=== PATIENT | female | born 1985 | race Caucasian/White ===

== ENCOUNTER 2017-06-26 06:00 | Inpatient (IN) | payer OTHER ==
[2017-06-26] MEDS ORDERED: OLIVE OIL 118 ML BTL MISC PRN (06:39)
[2017-06-26] MEDS ORDERED: EPSOM SALT 454 GM TP PRN (06:39)
[2017-06-26] MEDS ORDERED: TERBUTALINE SULFATE 1 MG/ML VIAL IV PRN (06:39)
[2017-06-26] MEDS ORDERED: LR 1,000 ML IV PRN (06:39)
[2017-06-26] MEDS ORDERED: OXYTOCIN 20 UNIT in LR 1,000 ML IV PRN (06:39)
[2017-06-26] MEDS ORDERED: IBUPROFEN 600 MG TAB PO PRN (06:39)
[2017-06-26] MEDS ORDERED: LIDOCAINE 1% 300 MG/30 ML SDV ONE (07:06)
[2017-06-26] MEDS ORDERED: OLIVE OIL 118 ML BTL ONE (07:06)
[2017-06-26] MEDS ORDERED: MISOPROSTOL 200 MCG TAB ONE (07:07)
[2017-06-26] MEDS ORDERED: AMMONIA AROMATIC 1 EACH AMP IH ONE (07:07)
[2017-06-26] MEDS ORDERED: TERBUTALINE SULFATE 1 MG/ML VIAL ONE (07:07)
[2017-06-26] MEDS ORDERED: OXYTOCIN 10 UNIT/ML VIAL ONE (07:07)
[2017-06-26 07:09] LABS: PLATELET COUNT 247 10^3/uL (150-400)
--- NOTE | 2017-06-26 07:14 | OBPROG ---
Labor Progress Note Assessment/Plan: Assessment:cat 1 fhr no regular painful contractions rahman bulb dc'd with exam today on admission /-2 cephalic soft posterior pitocin per protocol Plan:admit pitocin per protocol 06/26/17 07:12 Subjective/Intrapartum Course: 06/26/17 07:11 TAlked about iol at length discussed, r/b/a/ verbalized understanding. Discussed arom as a part of poc usually at noon time Objective: 06/26/17 06:45 - Physical Exam General Appearance: WD/WN, alert, no apparent distress Respiratory: chest non-tender, lungs clear, normal breath sounds Cardiac/Chest: regular rate, rhythm Abdomen: normal bowel sounds Extremities: normal range of motion, Dinh's sign (negative bilaterally) DTR- Lower Extremities: Knee (R): 1+, Knee (L): 1+ (no clonus) Skin: normal color, warm/dry Neuro/Psych: no motor/sensory deficits, alert, normal mood/affect, oriented x 3 ICD10 Worksheet Patient Problems: Problems Problem Status Onset iol postdates Acute
[2017-06-26] MEDS ORDERED: OXYTOCIN 30 UNIT in NS 500 ML IV SCH (07:15)
[2017-06-26] MEDS: AMPICILLIN SODIUM 1 GM in NS 50 ML IV SCH ×6 (07:30→19:15)
--- NOTE | 2017-06-26 08:39 | GHP ---
[f rep st] HISTORY AND PHYSICAL DATE OF ADMISSION: 06/26/2017 HISTORY OF PRESENT ILLNESS: The patient is a 32-year-old 1, para 0, with an EDC of 8, who comes in on 06/26/2017 for induction of labor at a gestational age of 40 and 5/7 weeks. In th e office yesterday at 5 p.m., a Palomares bulb was placed. The patient at that time, was 1 cm. Today, w ith admit to Labor and Delivery, an exam was completed. Palomares bulb was discontinued. The patient wa s 4 cm, 75% effaced, -2, cephalic, soft, and posterior. States has been feeling positive movem ent throughout the night. Denies regular contractions. Denies bloody show. The patient has been re ceiving routine care through [facility] since early on in the . The patient is A negative and has an anemic history antepartum. MEDICAL HISTORY: Benign. SURGICAL HISTORY: Patient had surgery for a cyst on her right wrist and had no difficulties with ane sthesia. GYNECOLOGICAL HISTORY: Previous OCP use and IUD use. Began her menses at 14 years of age which was regular. SOCIAL HISTORY: Denies alcohol. Denies tobacco use. Exercise 2-3 times per week. FAMILY HISTORY: Some knee surgery in her family as well as her significant other's. Breast cancer o f an aunt. Dad had high blood pressures. Maternal grandfather: Lung cancer. REVIEW OF SYSTEMS: Times 9 was benign. PHYSICAL ASSESSMENT: GENERAL: Patient is awake, alert, oriented x3. LUNGS: Clear bilaterally. AB DOMEN: Bowel sounds are positive in all 4 quadrants. EXTREMITIES: DTRs are 1+ bilaterally with no clonus. Homans sign is negative bilaterally. At this time, is unavailable. RPR is nonreactive. Gonorrhea and chlamydia are negative. H IV is negative. Hepatitis B is negative. Rubella is immune. Group beta strep was positive. The pa tient will be receiving antibiotics, will start them on admission. PLAN OF CARE: 1. GBS positive. Antibiotics in labor. 2. Pitocin per protocol. 3. Possible amniotomy after several hours of Pitocin. 4. Consult Dr. Elsie Gambino on plan of care. Dr. Gambino made aware of patient being in Labor and De livery. 5. The patient states that she is negative blood type, so will possibly receive RhoGAM depending on baby's cord blood. /[id number]/MODL
--- NOTE | 2017-06-26 14:34 | OBPROG ---
Labor Progress Note Assessment/Plan: Assessment: 32 y/o @ 40 5/7 wks for postdate IOL Plan: Continue current management Pitocin at 10 mu/min AROM -blood tinged fluid noted FHTs - Cat I tracing Will reassess for cervical change in a few hours 06/26/17 14:32 Subjective/Intrapartum Course: 06/26/17 07:11 Talked about Iol at length discussed, r/b/a/ verbalized understanding. Discussed arom as a part of poc usually at noon time 06/26/17 14:32 Pt doing well, not really feeling pain with her ctx's. Objective: 06/26/17 06:45 Patient ABO/Rh A NEGATIVE 06/26/17 06:45 - SVE Dilation (cm): 4 Effacement (%): 75 Station: -2 Membranes: AROM Amniotic Fluid Color: Bloody - Contraction Pattern Assessment Current Contraction Pattern: Regular (q4-5 min) - FHR Assessment Chamorro FHR (bpm): 140 FHR Pattern Variability: Moderate FHR Category: 1 - Procedures Non-surgical Procedures: Amniotomy - AP Antepartum Course: 06/26/17 14:34 Postdate IOL. +GBS. Rh negative. Oxytocin Orders Assessment - Pre-Induction/Augmentation Assessment Gestational Age: 40 week(s) and 5 day(s) ICD10 Worksheet Patient Problems: Problems Problem Status Onset iol postdates Acute
[2017-06-26] MEDS ORDERED: fentaNYL 2MCG/ML/BUP 0.1% RTU 100 ML BAG EP ONE (17:09)
[2017-06-26] MEDS ORDERED: BUPIVACAINE 0.25% 30 ML SDV ONE (17:09)
[2017-06-26] MEDS ORDERED: PHENYLEPHRINE HCL 100 MCG/ML SYR ONE (17:09)
[2017-06-26] MEDS ORDERED: fentaNYL 100 MCG/2 ML INJ ONE (17:10)
--- NOTE | 2017-06-26 18:32 | OBPROG ---
Labor Progress Note Assessment/Plan: Assessment: 32 y/o @ 40 5/7 wks for postdate IOL Plan: s/p epidural continue current management Pitocin at 10 mu/min FHTs - Cat I tracing Will have pt labor down 06/26/17 18:28 Subjective/Intrapartum Course: 06/26/17 07:11 Talked about Iol at length discussed, r/b/a/ verbalized understanding. Discussed arom as a part of poc usually at noon time 06/26/17 14:32 Pt doing well, not really feeling pain with her ctx's. 06/26/17 18:29 Pt is s/p epidural, states pain 7/10 mostly pressure Objective: 06/26/17 06:45 Patient ABO/Rh A NEGATIVE 06/26/17 06:45 - SVE Dilation (cm): 9 Effacement (%): 100 Station: +1 Membranes: AROM Amniotic Fluid Color: Bloody - Contraction Pattern Assessment Current Contraction Pattern: Regular (q3-5 min) - FHR Assessment Chamorro FHR (bpm): 140 FHR Pattern Variability: Moderate FHR Category: 1 (+early decels) - Procedures Non-surgical Procedures: Amniotomy - AP Antepartum Course: 06/26/17 14:34 Postdate IOL. +GBS. Rh negative. Oxytocin Orders Assessment - Pre-Induction/Augmentation Assessment Gestational Age: 40 week(s) and 5 day(s) ICD10 Worksheet Patient Problems: Problems Problem Status Onset iol postdates Acute
[2017-06-26] MEDS ORDERED: ONDANSETRON 4 MG/2 ML VIAL IVP PRN (19:33)
[2017-06-26] MEDS ORDERED: PHENYLEPHRINE HCL 100 MCG/ML SYR IVP PRN (19:33)
--- NOTE | 2017-06-26 19:39 | PREANESOB ---
Obstetric Pre-Anesthesia Info - General Info Proposed Procedure: Labor and delivery with pitocin. : 1 Para: 0 SHINE: 06/21/17 Gestational Age: 40 week(s) and 5 day(s) - Info Status: Postmature Monitors: External FHR Baseline (bpm): 135 FHR Pattern: Reassuring - Labor Status Cervical Dilation per last OB SVE: 4 Station per last OB SVE: +1 Amniotic Fluid Color: Bloody Pitocin: In Use Indications for Labor Analgesia: Induction of Labor, Pain Control Labor Epidural: Proposed Anesthesia ROS: Negative. Allergies/Adverse Reactions: Allergy/AdvReac Type Severity Reaction Status Date / Time No Known Allergies Allergy Unverified 06/26/17 06:29 Home Medications: Medication Instructions Recorded Docusate Sodium [Colace] 1 cap PO DAILY 06/26/17 IRON 1 tab PO DAILY 06/26/17 Pepcid 10 mg PO BID 06/26/17 1 tab PO DAILY 06/26/17 Visit Medications: Generic Name Dose Route Start Last Admin Trade Name Jasperq PRN Reason Stop Dose Admin Diphenhydramine HCl 25 - 50 mg 06/26/17 19:33 Benadryl Injection IVP 12/23/17 19:32 Q6HRS PRN Itching Ampicillin Sodium 1 gm/ Sodium 50 mls @ 100 mls/hr 06/26/17 10:45 06/26/17 15 :39 Chloride IV 07/26/17 10:44 50 mls Q4H MARY Administration Protocol Lactated Ringer's 1,000 mls @ 0 mls/hr 06/26/17 06:39 06/26/17 07:30 Lr IV 06/27/17 06:38 1,000 mls PRN PRN Administration SEE PROTOCOL CONDITIONS Protocol Per Protocol Oxytocin 20 unit/ Lactated 1,002 mls @ 150 mls/hr 06/26/17 06:39 Ringer's IV PRN PRN Post- bleeding Oxytocin 30 unit/ Sodium 503 mls @ 0 mls/hr 06/26/17 07:15 06/26/17 07:32 Chloride IV 12/23/17 07:14 503 mls CONT MARY Administration Protocol Per Protocol Fentanyl/Bupivacaine HCl 100 mls @ 0 mls/hr 06/26/17 20:00 Fentanyl/Bupivacaine/Ns 2 Mcg/Ml 0.1% (Premix EP 07/06/17 19:59 CONT MARY Protocol As Directed Lactated Ringer's 500 mls @ 0 mls/hr 06/26/17 20:00 Lr IV 12/23/17 19:59 CONT MARY As Directed Ibuprofen 600 mg 06/26/17 06:39 Motrin PO 12/23/17 06:38 Q6HRS PRN post , inflammation Magnesium Sulfate 454 gm 06/26/17 06:39 Epsom Salt TP 12/23/17 06:38 Q1H PRN perineal discomfort Industry Oil 118 ml 06/26/17 06:39 Sweet Oil MISC 12/23/17 06:38 ONCE PRN perineal massage Ondansetron HCl 4 mg 06/26/17 19:33 Zofran IVP 06/27/17 19:32 Q4HRS PRN Nausea/Vomiting, Can't Take PO Phenylephrine HCl 100 mcg 06/26/17 19:33 Neosynephrine IVP 12/23/17 19:32 .Q2M PRN Hypotension Terbutaline Sulfate 0.25 mg 06/26/17 06:39 Brethine IV 12/23/17 06:38 ONCE PRN Tachysystole Discontinued Medications Generic Name Dose Route Start Last Admin Trade Name Freq PRN Reason Stop Dose Admin Ammonia (Aromatic Spirit) Confirm 06/26/17 07:07 Ammonia Aromatic Administered 06/26/17 07:08 Dose 1 each IH .STK-MED ONE Bupivacaine HCl Confirm 06/26/17 17:09 Sensorcaine 0.25% Sdv Administered 06/26/17 17:10 Dose 30 ml .ROUTE .STK-MED ONE Fentanyl Confirm 06/26/17 17:10 Sublimaze Administered 06/26/17 17:11 Dose 100 mcg .ROUTE .STK-MED ONE Fentanyl/Bupivacaine HCl Confirm 06/26/17 17:09 Fentanyl/Bupivacaine/Ns 2 Mcg/Ml 0.1% (Premix Administered 06/26/17 17:10 Dose 100 ml EP .STK-MED ONE Ampicillin Sodium 1 gm/ Sodium 50 mls @ 100 mls/hr 06/26/17 06:45 06/26/17 07 :31 Chloride IV 06/26/17 07:44 50 mls Q30M MARY Administration Protocol Lidocaine HCl Confirm 06/26/17 07:06 Lidocaine Hcl 1% Administered 06/26/17 07:07 Dose 300 mg .ROUTE .STK-MED ONE Misoprostol Confirm 06/26/17 07:07 Cytotec Administered 06/26/17 07:08 Dose 1,000 mcg .ROUTE .STK-MED ONE Industry Oil Confirm 06/26/17 07:06 Sweet Oil Administered 06/26/17 07:07 Dose 118 ml .ROUTE .STK-MED ONE Oxytocin Confirm 06/26/17 07:07 Pitocin Administered 06/26/17 07:08 Dose 40 unit .ROUTE .STK-MED ONE Phenylephrine HCl Confirm 06/26/17 17:09 Neosynephrine Administered 06/26/17 17:10 Dose 1,000 mcg .ROUTE .STK-MED ONE Terbutaline Sulfate Confirm 06/26/17 07:07 Brethine Administered 06/26/17 07:08 Dose 1 mg .ROUTE .STK-MED ONE - Anesthesia History Response to Local Anesthetics: Normal Anesthesia & Operative History: No Prior Problems Family Anesthesia History: Negative - Social History Substance Use/Abuse: Denies - Vital Signs Blood Pressure: 113/74 Heart Rate: 96 Height/Weight (Nursing): Height 172.72 cm Weight 77.111 kg - Focused Exam Neck exam: FROM Mallampati Score: Class 1 Mouth exam: normal dental/mouth exam Pulmonary: no respiratory distress Cardiovascular: regular rate and rhythym Labs: 06/26/17 06:45 Patient ABO/Rh A NEGATIVE 06/26/17 06:45 - Plan Anesthetic Plan: NELIDA Consent Signed and on Chart: Yes Patient/Guardian Understands and Agrees to Plan: Yes Urgent/Emergent Case: Gem do completed preop but documented later for safe timely pt care
--- NOTE | 2017-06-26 19:40 | POSTANESTH ---
Post Anesthetic Evaluation Cardiovascular Status: Normal, Stable, Similar to Pre-Op Cond Respiratory Status: Normal, Stable, Similar to Pre-op Cond. Level of Consciousness/Mental Status: Can Participate in Eval, Alert and Oriented Pain Control: Adequate, Prn Tx Ordered Nausea/Vomiting Control: Adequate, Prn Tx Ordered Complications Possibly Related to Anesthesia: None Noted
[2017-06-26] MEDS ORDERED: LR 500 ML IV SCH (20:00)
[2017-06-26] MEDS ORDERED: fentaNYL 2MCG/ML/BUP 0.1% RTU 100 ML EP SCH (20:00)
--- NOTE | 2017-06-26 20:10 | OBPROG ---
Labor Progress Note Assessment/Plan: Assessment: 32 y/o @ 40 5/7 wks for postdate IOL Plan: Will start pushing Anticipate FHTs - Cat I tracing 06/26/17 20:07 Subjective/Intrapartum Course: 06/26/17 07:11 Talked about Iol at length discussed, r/b/a/ verbalized understanding. Discussed arom as a part of poc usually at noon time 06/26/17 14:32 Pt doing well, not really feeling pain with her ctx's. 06/26/17 18:29 Pt is s/p epidural, states pain 7/10 mostly pressure 06/26/17 20:09 Pt is feeling more pressure Objective: 06/26/17 06:45 Patient ABO/Rh A NEGATIVE 06/26/17 06:45 Temp Pulse Resp BP Pulse Ox 96 113/74 06/26/17 19:39 06/26/17 19:39 - SVE Dilation (cm): 10 Effacement (%): 100 Station: +2 Membranes: AROM Amniotic Fluid Color: Bloody - Contraction Pattern Assessment Current Contraction Pattern: Regular (q3-4 min) - Procedures Non-surgical Procedures: Amniotomy - AP Antepartum Course: 06/26/17 14:34 Postdate IOL. +GBS. Rh negative. Oxytocin Orders Assessment - Pre-Induction/Augmentation Assessment Gestational Age: 40 week(s) and 5 day(s) ICD10 Worksheet Patient Problems: Problems Problem Status Onset iol postdates Acute
[2017-06-26] MEDS ORDERED: METHYLERGONOVINE MAL 0.2 MG/ML INJ ONE (21:38)
[2017-06-26] MEDS ORDERED: METHYLERGONOVINE MAL 0.2 MG/ML INJ IM ONE (21:41)
[2017-06-26] MEDS ORDERED: SILVER NITRATE APPLICATOR 1 APPL TP ONE ×10 (21:51→21:56)
[2017-06-26] MEDS ORDERED: HYDROCORTISONE 0.5% CREAM TP PRN (22:06)
[2017-06-26] MEDS ORDERED: HYDROCODONE/APAP 5/325 TAB PO PRN (22:06)
[2017-06-26] MEDS ORDERED: SIMETHICONE 80 MG TAB CHEW PO PRN (22:06)
--- NOTE | 2017-06-26 22:12 | OBDEL ---
Info Type: Vaginal Presentation at Delivery: Vertex L&D Analgesia/Anesthesia Type: Epidural GBS+: Yes Antibiotic Used for + GBS: Ampicillin (x 4 doses) Intrapartum Medications: Generic Name Dose Route Start Last Admin Trade Name Freq PRN Reason Stop Dose Admin Ampicillin Sodium 1 gm/ Sodium 50 mls @ 100 mls/hr 06/26/17 10:45 06/26/17 19 :15 Chloride IV 07/26/17 10:44 50 mls Q4H MARY Administration Protocol Lactated Ringer's 1,000 mls @ 0 mls/hr 06/26/17 06:39 06/26/17 07:30 Lr IV 06/27/17 06:38 1,000 mls PRN PRN Administration SEE PROTOCOL CONDITIONS Protocol Per Protocol Oxytocin 30 unit/ Sodium 503 mls @ 0 mls/hr 06/26/17 07:15 06/26/17 07:32 Chloride IV 12/23/17 07:14 503 mls CONT MARY Administration Protocol Per Protocol Discontinued Medications Generic Name Dose Route Start Last Admin Trade Name Freq PRN Reason Stop Dose Admin Ampicillin Sodium 1 gm/ Sodium 50 mls @ 100 mls/hr 06/26/17 06:45 06/26/17 07 :31 Chloride IV 06/26/17 07:44 50 mls Q30M MARY Administration Protocol - Hospital Course Intrapartum: 06/26/17 07:11 Talked about Iol at length discussed, r/b/a/ verbalized understanding. Discussed arom as a part of poc usually at noon time 06/26/17 14:32 Pt doing well, not really feeling pain with her ctx's. 06/26/17 18:29 Pt is s/p epidural, states pain 7/10 mostly pressure 06/26/17 20:09 Pt is feeling more pressure Indications for Delivery: Postterm Unfavorable Cervix (s/p rahman bulb) Vaginal Delivery - Delivery Provider Delivery Physician/CNM: Elsie Gambino - Labor and Delivery Onset of Contractions Date: 06/26/17 Onset of Contractions Time: 08:44 Onset of Contractions Type: Induced Rupture of Membranes Date: 06/26/17 Rupture of Membranes Time: 14:00 Rupture of Membranes Type: Artificial Amniotic Fluid Color: Bloody Dilation Complete Date: 06/26/17 Dilation Complete Time: 19:00 Placenta Delivery Date: 06/26/17 Placenta Delivery Time: 21:33 Total Hours of Labor: 12 Non-surgical Procedures: Amniotomy Laceration: 2nd Degree, Other (Specify) (periurethral) Repair: 3-0, Vicryl Vaginal Sponge Count Correct: Yes Vaginal Needle Count Correct: Yes Vaginal Sweep Performed: Yes EBL: 400 cc Delivery Events: Nuchal Cord (x1, loose-slipped on perineum) Delivery Comment: There was noted to be excessive VB after delivery of placenta and uterine atony. The uterus became firm with massage, Pitocin and Methergine x 1. - Medications Labor Augmentation/Induction Methods Used: Pitocin, Rahman Bulb Labor Augmentation/Induction Indication: Post Dates Data SHINE: 06/21/17 Gestational Age: 40 week(s) and 5 day(s) [place] Delivery Date: 06/26/17 Delivery Time: 21:29 Sex of : Female ("[place]") Score (1 Min): 8 Score (10 Min): 10 ICD10 Worksheet Patient Problems: Problems Problem Status Onset (spontaneous vaginal delivery) Acute iol postdates Acute - ICD10 Problem Qualifiers (1) (spontaneous vaginal delivery)
[2017-06-26] MEDS: IBUPROFEN 600 MG TAB PO PRN ×2 (22:41→23:09)
[2017-06-27] MEDS: AMPICILLIN SODIUM 1 GM in NS 50 ML IV SCH (01:25)
[2017-06-27 03:10] VITALS: RESP 18
[2017-06-27] MEDS: IBUPROFEN 600 MG TAB PO PRN ×3 (04:55→19:07)
[2017-06-27] MEDS: IRON POLYSAC/IRON HEME 28 MG TAB PO SCH ×2 (11:49→21:39)
[2017-06-27] MEDS: DOCUSATE SODIUM 100 MG CAP PO PRN ×2 (11:49→21:40)
--- NOTE | 2017-06-27 16:51 | OBPP ---
Progress Note Assessment/Plan: Assessment: 32 y/o PPD #1 s/p doing well. Plan: support and routine PPC. Anticipate d/c home tomorrow. 06/27/17 16:50 Subjective/ Course: 06/27/17 16:48 Pt is doing well today, she feels generalized body soreness and perineal pain. She feels is it controlled well with Ibuprofen. Min lochia, ambulating and voiding without difficulty. Breast feeding is challenging, using breast rucker and a pump. Objective: 06/26/17 06:45 Patient ABO/Rh A NEGATIVE 06/26/17 23:07 Temp Pulse Resp BP Pulse Ox 36.2 C 106 H 18 92/59 L 94 06/27/17 07:40 06/27/17 07:40 06/27/17 07:40 06/27/17 07:40 06/27/17 07:40 Uterine Position/Fundal Height: Umbilicus -3 Uterine Tone: Firm Physical Exam - Physical Exam Neck: non-tender, full range of motion, supple Respiratory: chest non-tender, lungs clear, normal breath sounds Cardiac/Chest: regular rate, rhythm Abdomen: normal bowel sounds Extremities: swelling (no), Dinh's sign (neg)
[2017-06-27 22:36] VITALS: O2SAT 97
[2017-06-28] MEDS: IBUPROFEN 600 MG TAB PO PRN ×2 (02:04→08:27)
--- NOTE | 2017-06-28 07:37 | OBPP ---
Progress Note Assessment/Plan: Assessment: 1) s/p PPD # 2 - pt is stable 2) Anemia - pt is asymptomatic 3) Rh negative - s/p Rhogam Plan: Plan for d/c today Instructions reviewed with pt No Rx given Cont PNV, iron, colace Pelvic rest RTC in 4 and 6 weeks for pp visit 06/28/17 07:34 Subjective/ Course: 06/27/17 16:48 Pt is doing well today, she feels generalized body soreness and perineal pain. She feels is it controlled well with Ibuprofen. Min lochia, ambulating and voiding without difficulty. Breast feeding is challenging, using breast rucker and a pump. 06/28/17 07:35 Pt seen and examined. Doing well with no complaints. Mild cramping. Mod lochia. Pt is OOB, gloria regular diet, voiding and passing flatus. No BM. BF and pumping. Objective: 06/26/17 06:45 Patient ABO/Rh A NEGATIVE 06/26/17 23:07 Temp Pulse Resp BP Pulse Ox 36.0 C 96 18 95/61 L 97 06/27/17 21:00 06/27/17 21:00 06/27/17 21:00 06/27/17 21:00 06/27/17 21:00 Uterine Position/Fundal Height: Umbilicus -2 Uterine Tone: Firm Physical Exam - Physical Exam Abdomen: non-tender, soft, flatus (+) Extremities: non-tender, normal inspection Skin: normal color, warm/dry Neuro/Psych: alert, normal mood/affect, oriented x 3
--- NOTE | 2017-06-28 07:38 | OBGCSDC ---
General Delivery Information - General Info : 1 Para: 1 Abortions: 0 Type: Vaginal L&D Analgesia/Anesthesia Type: Epidural Admission Date: 06/26/17 Labs: Patient ABO/Rh A NEGATIVE 06/26/17 23:07 Hct 35.3 % (38.0-47.0) L 06/26/17 06:45 - Hospital Course Antepartum: 06/26/17 14:34 Postdate IOL. +GBS. Rh negative. Intrapartum: 06/26/17 07:11 Talked about Iol at length discussed, r/b/a/ verbalized understanding. Discussed arom as a part of poc usually at noon time 06/26/17 14:32 Pt doing well, not really feeling pain with her ctx's. 06/26/17 18:29 Pt is s/p epidural, states pain 7/10 mostly pressure 06/26/17 20:09 Pt is feeling more pressure : 06/27/17 16:48 Pt is doing well today, she feels generalized body soreness and perineal pain. She feels is it controlled well with Ibuprofen. Min lochia, ambulating and voiding without difficulty. Breast feeding is challenging, using breast rucker and a pump. 06/28/17 07:35 Pt seen and examined. Doing well with no complaints. Mild cramping. Mod lochia. Pt is OOB, gloria regular diet, voiding and passing flatus. No BM. BF and pumping. Vaginal - Delivery Provider Delivery Physician/CNM: Elsie Gambino - Diagnosis Labor: Induced Rupture of Membranes Type: Artificial Amniotic Fluid Color: Bloody Laceration: 2nd Degree, Other (Specify) (periurethral) Repair: 3-0, Vicryl Delivery Events: Nuchal Cord (x1, loose-slipped on perineum) - Procedures Non-surgical Procedures: Amniotomy - Delivery Non-surgical Procedures: Amniotomy EBL: 400 cc Mcbh [place] Data SHINE: 06/21/17 Gestational Age: 41 week(s) and 0 day(s) [place] Delivery Date: 06/26/17 Delivery Time: 21:29 Sex of Infant: Female Score (1 Min): 8 Score (5 Min): 10 Score (10 Min): 10 Discharge Information - Discharge Information Condition: Good Instruction/Follow Up: Four Weeks, Six Weeks
[2017-06-28] MEDS: IRON POLYSAC/IRON HEME 28 MG TAB PO SCH (08:26)
[2017-06-28] MEDS: DOCUSATE SODIUM 100 MG CAP PO PRN (08:27)
[2017-06-28 09:19] VITALS: BP 105/70; PULSE 110; TEMP 98.5
== END 2017-06-28 12:30 | disposition home or self-care (01) | DRG 774 ==
LOC: FLD 06:14 → FOB 06-27 07:25
PROVIDERS: ADMIT Obstetrics & Gynecology; ATTEND Obstetrics & Gynecology
PROC: 0KQM0ZZ Repair Perineum Muscle, Open Approach (ICD-10-PCS; principal; 2017-06-26)
PROC: 10E0XZZ Delivery of Products of Conception, External Approach (ICD-10-PCS; principal; 2017-06-26)
PROC: 3E033VJ Introduction of Other Hormone into Peripheral Vein, Percutaneous Approach (ICD-10-PCS; 2017-06-26)
PROC: 10907ZC Drainage of Amniotic Fluid, Therapeutic from Products of Conception, Via Natural or Artificial Opening (ICD-10-PCS; 2017-06-26)
DX: O48.0 Post-term pregnancy (principal); O70.1 Second degree perineal laceration during delivery; O72.1 Other immediate postpartum hemorrhage; O69.81X0 Labor and delivery complicated by cord around neck, without compression, not applicable or unspecified; O99.824 Streptococcus B carrier state complicating childbirth; Z3A.40 40 weeks gestation of pregnancy; Z37.0 Single live birth
CPT/HCPCS: J0290; J2210; J2370; J3010; J3105